=== PATIENT | male | born 1980 | race Caucasian/White ===

== ENCOUNTER 2017-11-28 14:47 | Emergency (ER) | payer BC, OTHER ==
[~2017-11-28] VITALS: Ht 180.3 cm; Wt 82.1 kg
[2017-11-28] MEDS ORDERED: LEXAPRO5 MG PO (14:53)
[2017-11-28] MEDS ORDERED: XARELTO15 MG PO (16:00)
== END 2017-11-28 16:11 | disposition home or self-care (01) ==
LOC: ER 14:47
DX: I82.4Z1 Acute embolism and thrombosis of unspecified deep veins of right distal lower extremity (principal); Z88.1 Allergy status to other antibiotic agents